=== PATIENT | female | born 1990 | race Caucasian/White ===

== ENCOUNTER 2016-12-15 09:56 | Emergency (ER) | payer SELFPAY ==
[2016-12-15 10:07] VITALS: BP 104/69; TEMP 99.6; O2SAT 96
[2016-12-15] MEDS ORDERED: CLINDAMYCIN HCL CAP 150 MG CAP PO ONE (10:10)
[2016-12-15] MEDS ORDERED: CLINDAMYCIN HCL CAP (ER DISP) 150 MG CAP PO ONE (10:11)
--- NOTE | 2016-12-15 10:14 | ED.PDOC ---
History of Present Illness - General Chief Complaint: Dental/Mouth Stated Complaint: swelling, mouth discomfort Time Seen by Provider: 12/15/16 10:10 Source: patient, RN notes reviewed, Vital Signs reviewed Exam Limitations: no limitations - History of Present Illness Initial Comments: Patient is a 26 y/o female who has had tooth pain for the past 2 days. She was unable to get into her dentist because they were closed as it was Good Friday. It is a sharp pain, moderate to severe. Her left face was swollen when she woke up this morning. She denies any fever. Timing/Duration: getting worse, other - 2 days Severity: moderate, severe Improving Factors: nothing Worsening Factors: eating Associated Symptoms: headaches, nausea/vomiting Allergies/Adverse Reactions: Allergies NO KNOWN ALLERGY Allergy (Verified 12/15/16 09:58) Home Medications: Ambulatory Orders [facility] 03/05/16 Clindamycin HCl 300 mg PO Q6H #28 cap 12/15/16 Gabapentin 300 mg PO TID PRN #30 cap 12/15/16 Review of Systems - Review of Systems Constitutional: States: no symptoms reported. Denies: chills, fever EENTM: States: other - tooth pain, facial swelling Respiratory: States: no symptoms reported Cardiology: States: no symptoms reported Gastrointestinal/Abdominal: States: nausea, vomiting Genitourinary: States: no symptoms reported Musculoskeletal: States: no symptoms reported Skin: States: no symptoms reported Neurological: States: no symptoms reported Endocrine: States: no symptoms reported Hematologic/Lymphatic: States: no symptoms reported All other Systems: Reviewed and Negative Past Medical History (General) - Patient Medical History Hx Seizures: No Hx Stroke: No Hx Dementia: No Hx Asthma: No Hx of COPD: No Hx Cardiac Disorders: No Hx Congestive Heart Failure: No Hx Pacemaker: No Hx Hypertension: No Hx Thyroid Disease: No Hx Diabetes: No Hx Gastroesophageal Reflux: No Hx Renal Disease: No Hx Cancer: No Hx of HIV: No Hx Hepatitis C: No Hx MRSA: No Surgical History: no surgical history - Vaccination History Hx Tetanus, Diphtheria Vaccination: No Hx Influenza Vaccination: No Hx Pneumococcal Vaccination: No - Social History Hx Tobacco Use: No Hx Chewing Tobacco Use: No Hx Alcohol Use: No Hx Substance Use: No Hx Substance Use Treatment: No Hx Depression: No Hx Physical Abuse: No Hx Emotional Abuse: No Hx Suspected Abuse: No - Female History Patient is a Female of Child Bearing Age (10 -59 yrs old): Yes Patient : No Family Medical History - Family History Mother Family History: Unknown Living Status: Unknown Physical Exam - Physical Exam General Appearance: Alert, Comfortable Eye Exam: bilateral normal Ears, Nose, Throat: hearing grossly normal, normal pharynx, other - + gingival abscess left lower gingiva with pain in tooth just anterior to abscess Neck: non-tender, full range of motion, supple Respiratory: lungs clear, normal breath sounds, no respiratory distress, no accessory muscle use Cardiovascular/Chest: regular rate, rhythm, no edema, no gallop, no murmur Gastrointestinal/Abdominal: normal bowel sounds, non tender, soft Neurologic: alert, normal mood/affect, oriented x 3 Skin Exam: normal color, warm/dry Progress - Results/Orders Results/Orders: 12/15/16 10:00 Temperature 99.6 F Pulse Rate [ 99 H Left Radial] Respiratory 20 Rate Blood Pressure 104/69 [Left Arm] O2 Sat by Pulse 96 Oximetry Departure - Departure Clinical Impression: Gingival abscess Time of Disposition: 10:16 Disposition: Discharge to Home or Self Care Condition: Excellent Departure Forms: ED Discharge - Pt. Copy, Patient Portal Self Enrollment Diet: resume usual diet Prescriptions: Clindamycin HCl 300 mg PO Q6H #28 cap Gabapentin 300 mg PO TID PRN #30 cap PRN Reason: Pain Home Medications: Ambulatory Orders [facility] 03/05/16 Clindamycin HCl 300 mg PO Q6H #28 cap 12/15/16 Gabapentin 300 mg PO TID PRN #30 cap 12/15/16 Additional Instructions: Follow up with dentist KARLA. Follow up in ED if symptoms worsen.
== END 2016-12-15 10:30 | disposition home or self-care (01) ==
LOC: ER 09:56
DX: K05.219 Aggressive periodontitis, localized, unspecified severity (principal)

== ENCOUNTER 2017-01-16 00:20 | Emergency (ER) | payer SELFPAY ==
[2017-01-16 00:36] VITALS: O2SAT 96
--- NOTE | 2017-01-16 01:26 | ED.PDOC ---
History of Present Illness - General Chief Complaint: ENT Problem Stated Complaint: Qtip in left ear Time Seen by Provider: 01/16/17 01:23 Source: patient Exam Limitations: no limitations - History of Present Illness Initial Comments: Patient presents with the cotton from the head of a Q tip in her left ear. She was cleaning her ears tonight and stuck the QTIP in but when she removed it the cotton was gone. She is having no pain. No other complaints. Timing/Duration: 1-3 hours Severity: mild Improving Factors: nothing Worsening Factors: nothing Associated Symptoms: denies symptoms Allergies/Adverse Reactions: Allergies NO KNOWN ALLERGY Allergy (Verified 01/16/17 00:36) Home Medications: Ambulatory Orders [facility] 03/05/16 Review of Systems - Review of Systems Constitutional: States: no symptoms reported EENTM: States: see HPI Respiratory: States: no symptoms reported Cardiology: States: no symptoms reported Gastrointestinal/Abdominal: States: no symptoms reported Genitourinary: States: no symptoms reported Musculoskeletal: States: no symptoms reported Skin: States: no symptoms reported Neurological: States: no symptoms reported Endocrine: States: no symptoms reported Hematologic/Lymphatic: States: no symptoms reported Past Medical History (General) - Patient Medical History Hx Seizures: No Hx Stroke: No Hx Dementia: No Hx Asthma: No Hx of COPD: No Hx Cardiac Disorders: No Hx Congestive Heart Failure: No Hx Pacemaker: No Hx Hypertension: No Hx Thyroid Disease: No Hx Diabetes: No Hx Gastroesophageal Reflux: No Hx Renal Disease: No Hx Cancer: No Hx of HIV: No Hx Hepatitis C: No Hx MRSA: No Surgical History: no surgical history - Vaccination History Hx Tetanus, Diphtheria Vaccination: No Hx Influenza Vaccination: No Hx Pneumococcal Vaccination: No Immunizations Up to Date: No - Social History Hx Tobacco Use: No Hx Chewing Tobacco Use: No Hx Alcohol Use: No Hx Substance Use: No Hx Substance Use Treatment: No Hx Depression: No Feels Threatened In Home Enviroment: No Feels Threatened In a Relationship: No Hx Physical Abuse: No Hx Emotional Abuse: No Hx Suspected Abuse: No - Female History Patient is a Female of Child Bearing Age (10 -59 yrs old): Yes Patient : No Family Medical History - Family History Mother Family History: Unknown Living Status: Still Living Hx Cardiac Disease: Yes Physical Exam - Physical Exam General Appearance: Alert Ears, Nose, Throat: other - there is cotton in the left ear canal. Otherwise, normal exam. Neck: non-tender, full range of motion, supple Respiratory: lungs clear Cardiovascular/Chest: regular rate, rhythm Progress - Progress Progress: 01/16/17 01:25 Left ear flushed with NS. Recheck of the ear canal showed that it was clear of the cotton. Departure - Departure Clinical Impression: Foreign body in ear Disposition: Discharge to Home or Self Care Condition: Good Departure Forms: ED Discharge - Pt. Copy, Patient Portal Self Enrollment Diet: resume usual diet Activity: increase activity as tolerated Home Medications: Ambulatory Orders [facility] 03/05/16
[2017-01-16 01:54] VITALS: BP 101/71; TEMP 97.1
== END 2017-01-16 01:56 | disposition home or self-care (01) ==
LOC: ER 00:20
DX: T16.2XXA Foreign body in left ear, initial encounter (principal); X58.XXXA Exposure to other specified factors, initial encounter; Y92.009 Unspecified place in unspecified non-institutional (private) residence as the place of occurrence of the external cause